=== PATIENT | male | born 1950 | race Caucasian/White ===

== ENCOUNTER 2018-11-20 00:01 | Emergency (ER) | payer MEDICARE ==
[2018-11-20 01:15] LABS: #Eosinphils 0.1 thou/uL (0.0-0.7); #Lymphocytes 1.2 thou/uL (1.20-3.40); #Monocytes 1.3 thou/uL (0.11-0.59); #Neutrophils 8.1 thou/uL (1.40-6.50); %Basophils 0.4 % (0.0-1.0); %Eosinophils 1.2 % (0.0-10.0); %Monocytes 12.4 % (0.0-10.0); Hemoglobin 14.4 g/dL (14.0-18.0); Mean Corpuscular HGB CONC 33.8 g/dL (32.0-36.0); Mean Corpuscular Hemoglobin 31.8 pg (27.0-31.0); Mean Corpuscular Volume 94.1 fL (78.0-98.0); Mean Platelet Volume 7.4 fL (7.4-10.4); Platelet Count 273 thou/uL (130-400); Red Blood Cell (RBC) Count 4.53 mill/uL (4.70-6.10); White Blood Cell (WBC) Count 10.7 thou/uL (4.8-10.8)
[2018-11-20 01:36] LABS: ALT (SGPT) 15 U/L (8-55); AST (SGOT) 17 U/L (5-34); Albumin 3.3 g/dL (3.4-4.8); Alkaline Phosphatase 87 U/L (40-150); Anion Gap 13 mmol/L (10-20); BUN (Urea Nitrogen) 10 mg/dL (8.4-25.7); Bilirubin, Total 0.5 mg/dL (0.2-1.2); Calc. Creatinine Clearance 0 mL/min (70-130); Calcium 9.3 mg/dL (7.8-10.44); Carbon Dioxide 24 mmol/L (23-31); Chloride 93 mmol/L (98-107); Estimated GFR-MDRD 88; Globulin 3.2 g/dL (2.4-3.5); Glucose 122 mg/dL (80-115); Potassium 3.9 mmol/L (3.5-5.1); Protein, Total 6.5 g/dL (5.8-8.1); Sodium 126 mmol/L (136-145)
[2018-11-20] MEDS ORDERED: Piperacillin/Tazobactam 3.375 GM VIAL ONE (01:39)
--- NOTE | 2018-11-20 07:51 | RAD ---
XR Hand Lt 3 View STANDARD History: Trauma Comparison: None. Findings: The exam is overexposed with absent appearance of the soft tissues over the distal phalanx tuft. Soft tissue swelling of the thenar eminence. There are multiple radiopaque foreign objects, punctate, within the thenar soft tissues. Moderate degenerative disease of the second and third metacarpal phalangeal joints. Moderate degenera tive disease with the thumb carpometacarpal joint. Diffuse soft tissue swelling of the hand. Impression: Diffuse soft tissue swelling of the hand with punctate radiopacities along the thenar sof t tissues. Underlying infection is of concern.
== END 2018-11-20 04:10 | disposition home or self-care (01) ==
LOC: ERS 00:01
DX: L03.116 Cellulitis of left lower limb (principal); E11.9 Type 2 diabetes mellitus without complications; I10 Essential (primary) hypertension; J44.9 Chronic obstructive pulmonary disease, unspecified; F17.210 Nicotine dependence, cigarettes, uncomplicated; Z79.899 Other long term (current) drug therapy
CPT/HCPCS: 36415; 80053; 83930; 85025; 96365; 96367; J2543; J3370

== ENCOUNTER 2018-11-21 15:09 | Inpatient (IN) | payer MEDICARE ==
[2018-11-21 16:01] LABS: #Basophils 0.1 thou/uL (0.0-0.2); #Eosinphils 0.3 thou/uL (0.0-0.7); #Lymphocytes 1.1 thou/uL (1.20-3.40); #Monocytes 1.2 thou/uL (0.11-0.59); %Basophils 1.2 % (0.0-1.0); %Eosinophils 3.4 % (0.0-10.0); %Lymphocytes 12.8 % (21.0-51.0); %Monocytes 13.5 % (0.0-10.0); %Neutrophils 69.1 % (42.0-75.0); Hemoglobin 15.5 g/dL (14.0-18.0); Mean Corpuscular HGB CONC 33.8 g/dL (32.0-36.0); Mean Corpuscular Hemoglobin 31.7 pg (27.0-31.0); Mean Corpuscular Volume 93.7 fL (78.0-98.0); Mean Platelet Volume 7.1 fL (7.4-10.4); Platelet Count 363 thou/uL (130-400); RBC Distribution Width 13.8 % (11.5-14.5); Red Blood Cell (RBC) Count 4.91 mill/uL (4.70-6.10); White Blood Cell (WBC) Count 8.7 thou/uL (4.8-10.8)
[2018-11-21 16:27] LABS: ALT (SGPT) 16 U/L (8-55); AST (SGOT) 18 U/L (5-34); Albumin 3.6 g/dL (3.4-4.8); Alkaline Phosphatase 89 U/L (40-150); Anion Gap 14 mmol/L (10-20); BUN (Urea Nitrogen) 8 mg/dL (8.4-25.7); Bilirubin, Total 0.5 mg/dL (0.2-1.2); Calc. Creatinine Clearance 0 mL/min (70-130); Calcium 9.5 mg/dL (7.8-10.44); Carbon Dioxide 23 mmol/L (23-31); Chloride 99 mmol/L (98-107); Estimated GFR-MDRD 85; Globulin 3.4 g/dL (2.4-3.5); Glucose 88 mg/dL (80-115); Potassium 3.6 mmol/L (3.5-5.1); Sodium 132 mmol/L (136-145)
[2018-11-21] MEDS ORDERED: Piperacillin/Tazobactam 3.375 GM VIAL ONE (17:31)
[2018-11-21] MEDS ORDERED: Acetaminophen 325 MG TAB PO PRN (18:29)
[2018-11-21] MEDS ORDERED: Senokot S 8.6-50 MG TAB PO PRN (18:29)
[2018-11-21 21:28] VITALS: BMI 21.7
[2018-11-21] MEDS: Famotidine 20 MG TAB PO SCH (21:40)
[2018-11-21] MEDS: Sodium Chloride 0.9% 1,000 ML IV SCH (21:59)
[2018-11-21] MEDS ORDERED: HumaLOG 300 UNITS/3 ML VIAL SC PRN (22:03)
[2018-11-21] MEDS ORDERED: Dextrose 50% Abboject 50 ML SYRINGE SLOW IVP PRN (22:03)
[2018-11-21] MEDS ORDERED: Dextrose 5% in Water 1,000 ML IV PRN (22:03)
[2018-11-21] MEDS: Piperacillin/Tazobactam 3.375 GM in Sodium Chloride 0.9% 100 ML IVPB SCH (23:44)
[2018-11-21] MEDS: HYDROcodone/Acetaminophen 5/325 mg Tablet PO PRN (23:46)
[2018-11-22] MEDS: Vancomycin HCl 1 GM in Premix Bag 1 BAG IVPB SCH ×2 (02:07→14:38)
--- NOTE | 2018-11-22 03:34 | HP ---
PRIMARY CARE PHYSICIAN: None. CHIEF COMPLAINT: Cellulitis, swelling, and redness to left hand. HISTORY OF PRESENT ILLNESS: Mr. Campbell is a 68-year-old man who reported to the emergency room today. The patient was seen in the emergency room on 11/19, 11/20, and then again today for the similar complaints, and on 11/19 and 11/20 visits, he left AMA. The patient reports that he was bitten by his own cat to middle finger left hand 6 days ago. He has a puncture wound to the left 3rd finger. Reports that it is swollen and painful. He has gotten IV antibiotics on the previous 2 visits to the emergency room and left AMA. Per reports that it is getting better after those visits, but it continues to throb and he sought care in the emergency room again today. At this point, ER physician recommended admission, which he agreed to. The patient denied any fever or chills. Denies any swelling. He was given vanc and Zosyn in the emergency room. PERTINENT LABORATORY DATA: White blood cell count is 8.7, hemoglobin is 15.5, hematocrit is 46, platelet count is 363. Chemistry; sodium 132, potassium 3.6, chloride 99, carbon dioxide 23, gap is 14, BUN is 8, creatinine is 0.89, estimated GFR is 85, glucose is 88, lactic acid is 2, calcium 9.5. Liver enzymes are unremarkable. The patient had an x-ray of his hand on 11/20, after midnight; impression, diffuse soft tissue swelling of the hand with punctate opacities along the thenar soft tissues, underlying infection is of concern. The patient was seen in [place] and given a prescription for Augmentin for this bite. Reports that he did get it filled and has taken 2 doses. The patient admitted to the medical unit for IV antibiotics and further management. REVIEW OF SYSTEMS: Reports left hand swelling, punctate wound to the left 3rd digit, has full range of motion. Does have some swelling and erythema of the left hand and left forearm. Denies fever and chills. All other systems are reviewed and are negative unless mentioned in the HPI. PAST MEDICAL HISTORY: Pertinent for type 2 diabetes, hypertension, pulmonary disease. He has COPD. PAST SURGICAL HISTORY: Includes bilateral ulnar nerve surgery, colonoscopy, and vasectomy. SOCIAL HISTORY: The patient drinks alcohol daily. Reports that he drinks at least 4 to 5 beers a day. He is a smoker. Reports that he smokes 1 pack per day. Also currently uses drug, abuses marijuana. KNOWN ALLERGIES: 1. Demerol. 2. Flu and pneumonia vaccine. 3. Lisinopril. 4. Tramadol. CURRENT MEDICATIONS: 1. ProAir 2 puffs q.6 hours as needed. 2. Symbicort 160/4.5 one puff b.i.d. 3. Spiriva 18 mcg p.r.n. as needed for shortness of breath or wheezing. PHYSICAL EXAMINATION: VITAL SIGNS: Blood pressure 159/93, pulse is 82, respirations 16, temp is 98.5, pO2 sats are 95% on room air. CONSTITUTIONAL: The patient appears nontoxic. He is alert and oriented to person, place, and time. HEENT: Head is atraumatic and normocephalic. Eyes, pupils are equally round and reactive to light. Extraocular muscles are intact. ENT; mouth exam is normal. Mucous membranes are moist. NECK: Trachea is midline. RESPIRATORY/CHEST: Breath sounds are clear. Chest movement is symmetrical. CARDIOVASCULAR: S1 and S2. Heart sounds are normal. ABDOMEN: Nontender. Bowel sounds are heard. BACK: Normal range of motion. No tenderness. EXTREMITIES: Upper extremities; prominent soft tissue swelling of the dorsal aspect of the left hand with no purulence, no abscess. Dorsal aspect of the middle phalanx of the left 3rd digit has a bite puncture wound. No fusiform swelling and no tenderness of the flexor tendon. No lymphadenopathy of the left axilla. Range of motion is normal. Motor strength is normal. Sensation is intact. Radial pulses are equal bilaterally. There is no clubbing. Lower extremities; normal range of motion. Normal strength. Sensation is intact. Pedal pulses are equal. NEUROLOGIC: The patient is oriented to person, place, and time. Speech is normal. Memory is normal. There is no focal motor or sensory deficits. SKIN: Warm, dry, normal in color with the exception of the left hand as documented above. PSYCH: He is alert and oriented to person, place, and time. Speech is rushed. LABORATORY DATA: Sodium 132, potassium 3.6, chloride 99, gap is 14, BUN is 8, creatinine is 0.89. Lactic acid is 2, calcium is 9.5. Liver enzymes are unremarkable. White blood cell count is 8.7, hemoglobin 15.5, hematocrit is 46, platelet count is 363. ASSESSMENT AND PLAN: 1. Cellulitis with puncture wound to left middle finger. We will continue the Zosyn, vanc, antibiotics, gentle hydration, medications added for pain. We have asked Wound Care to consult. We have asked Orthopedics to consult. Hand Surgery is not on-call. 2. History of chronic obstructive pulmonary disease. We will restart home medications. Appears stable. 3. Diabetes type 2. Accu-Cheks a.c. and at bedtime, and sliding scale has been started. 4. History of hypertension, although the patient is not on any home medications. We will trend. 5. Gastrointestinal and deep venous thrombosis prophylaxis have been started. 6. History of alcohol abuse. We have initiated the MOIZ protocol. 7. The patient is a cigarette smoker. Cessation counseling has been given. 8. Hospital course is dependent on clinical findings. Job ID: [id number]
[2018-11-22 05:26] LABS: #Basophils 0.1 thou/uL (0.0-0.2); #Eosinphils 0.5 thou/uL (0.0-0.7); #Lymphocytes 1.1 thou/uL (1.20-3.40); #Neutrophils 4.4 thou/uL (1.40-6.50); %Eosinophils 7.5 % (0.0-10.0); %Lymphocytes 15.4 % (21.0-51.0); %Monocytes 13.9 % (0.0-10.0); %Neutrophils 62.3 % (42.0-75.0); Hemoglobin 14.8 g/dL (14.0-18.0); Mean Corpuscular HGB CONC 33.4 g/dL (32.0-36.0); Mean Corpuscular Hemoglobin 31.3 pg (27.0-31.0); Mean Corpuscular Volume 93.7 fL (78.0-98.0); Mean Platelet Volume 7.3 fL (7.4-10.4); Platelet Count 353 thou/uL (130-400); RBC Distribution Width 13.8 % (11.5-14.5); Red Blood Cell (RBC) Count 4.71 mill/uL (4.70-6.10)
[2018-11-22 05:38] LABS: ALT (SGPT) 14 U/L (8-55); AST (SGOT) 13 U/L (5-34); Albumin 3.1 g/dL (3.4-4.8); Alkaline Phosphatase 76 U/L (40-150); Anion Gap 13 mmol/L (10-20); BUN (Urea Nitrogen) 5 mg/dL (8.4-25.7); Bilirubin, Total 0.6 mg/dL (0.2-1.2); Calc. Creatinine Clearance 91 mL/min (70-130); Calcium 8.6 mg/dL (7.8-10.44); Carbon Dioxide 23 mmol/L (23-31); Chloride 101 mmol/L (98-107); Estimated GFR-MDRD Greater than 90; Globulin 2.8 g/dL (2.4-3.5); Glucose 125 mg/dL (80-115); Potassium 3.2 mmol/L (3.5-5.1); Protein, Total 5.9 g/dL (5.8-8.1); Sodium 134 mmol/L (136-145)
[2018-11-22] MEDS: Piperacillin/Tazobactam 3.375 GM in Sodium Chloride 0.9% 100 ML IVPB SCH ×4 (05:44→23:45)
[2018-11-22] MEDS: HYDROcodone/Acetaminophen 5/325 mg Tablet PO PRN ×3 (05:45→21:03)
[2018-11-22] MEDS ORDERED: Ondansetron ODT 4 MG TAB PO PRN (06:48)
[2018-11-22] MEDS ORDERED: Loratadine 10 MG TAB PO PRN (06:48)
[2018-11-22] MEDS ORDERED: Sodium Chloride 0.65% Nasal 44 ML BOT EA NARE PRN (06:48)
[2018-11-22] MEDS ORDERED: hydrALAZINE 20 MG/ML VIAL SLOW IVP PRN (06:48)
[2018-11-22] MEDS ORDERED: Temazepam 15 MG CAP PO PRN (06:48)
[2018-11-22] MEDS ORDERED: Bisacodyl 10 MG SUPP PR PRN (06:48)
[2018-11-22] MEDS ORDERED: Artificial Tears 18 DROP/0.9 ML EA EYE PRN (06:48)
[2018-11-22] MEDS ORDERED: Calcium Carbonate 500 MG ChewTAB PO PRN (06:48)
[2018-11-22] MEDS ORDERED: Cepastat Lozenges 1 LOZ PO PRN (06:48)
[2018-11-22] MEDS ORDERED: Diabetic Tussin 200 MG/10 ML UDCUP PO PRN (06:48)
[2018-11-22] MEDS ORDERED: Loperamide HCl 2 MG CAP PO PRN (06:48)
[2018-11-22] MEDS ORDERED: Ondansetron PF 4 MG/2 ML Vial IVP PRN (06:48)
[2018-11-22] MEDS ORDERED: Potassium Chloride 20 MEQ TAB PO SCH (07:00)
[2018-11-22] MEDS: Mometasone/Formoterol 120 PUFF INHALER INH SCH ×2 (07:43→19:47)
[2018-11-22] MEDS: Sodium Chloride 0.9% 1,000 ML IV SCH ×2 (09:01→17:32)
[2018-11-22] MEDS: Famotidine 20 MG TAB PO SCH ×2 (09:02→21:02)
[2018-11-22] MEDS: Enoxaparin Sodium 40 MG/0.4 ML SYRINGE SC SCH (09:03)
--- NOTE | 2018-11-22 10:20 | CON ---
DATE OF CONSULTATION: 11/22/2018 REQUESTING PHYSICIAN: [facility] CONSULTING PHYSICIAN: Johny Polk MD REASON FOR CONSULTATION: Cat bite, left hand, with cellulitis. HISTORY OF PRESENT ILLNESS: This is a 68-year-old gentleman, who initially reported to the emergency department on 11/19, again on 11/20 and then again on 11/21 for similar complaints. In the first several visits, he left AMA. He states that he was bitten by his own cat on the left hand middle finger 1 week ago today. He [place]. He was transporting the cat, and the cat became upset. He states that the cat is up-to-date on all vaccinations. This is a house cat, that is his cat and he has never had problems with. He is right-hand dominant. He states that he was unable to seek medical care immediately secondary to his move. He states his condition worsened with pain and swelling to the left hand. He denies any fever, chills, or any other symptoms. He has been admitted to the Medicine Service. He is on vancomycin and Zosyn. We have been consulted for further evaluation of this injury. He currently denies any numbness or tingling and he is also right-hand dominant. PAST MEDICAL HISTORY: Significant for type 2 diabetes, hypertension, COPD. PAST SURGICAL HISTORY: Includes colonoscopy, vasectomy, bilateral ulnar nerve surgery. SOCIAL HISTORY: The patient drinks alcohol daily. He also is a smoker. He reports that he smokes a half a pack to 1 pack per day. Also, states that he uses recreational marijuana. The patient states that he lives alone and recently moved to this area. He is an independent ambulator. FAMILY HISTORY: Reviewed and noncontributory. ALLERGIES: INCLUDE DEMEROL, FLU AND PNEUMONIA VACCINE, LISINOPRIL, TRAMADOL. PHYSICAL EXAMINATION: VITAL SIGNS: Show temperature of 97.8, pulse of 80, respiratory rate of 22, O2 saturation of 95% on room air, and blood pressure of 165/77. GENERAL: The patient is awake and alert. He is cooperative with exam findings. He is in no apparent distress. There is no family present in the room with him today. HEENT: Head is normocephalic and atraumatic. NECK: Supple. Trachea midline. Breathing nonlabored. EXTREMITIES: The left upper extremity is evaluated. There is a healing puncture wound noted to the third digit right along the dorsal aspect of the PIP joint. The patient does slightly flex and extend all digits on his own. He reports some pain in digits three, four and five, although he is able to flex and extend his digits on his own. I am also able to passively flex and extend these digits as well. Capillary refill is 3 seconds. There is no erythema or streaking noted at the palmar aspect of the hand or the digits. No tenderness upon the flexor tendons. No palpable fluid collection. Remainder of extremity exam is otherwise unremarkable. LABORATORY DATA: Reviewed including CBC shows a CBC from today 11/22/2018 with a normal blood cell count of 7.0, hemoglobin of 14.8, hematocrit of 44.2, and platelet count of 353. ASSESSMENT: Left hand cellulitis status post cat bite 1 week ago. PLAN: At this time, the patient's condition does not appear operative. There is no palpable fluid collection. There is no evidence of flexor tenosynovitis. The patient will continue on IV antibiotics at this time. He reports a concern over his animals living at home. We have strongly recommended that he stay inpatient in order to receive the best care possible and receive IV antibiotics. He does state that he has some pill antibiotics at home that he was prescribed and he picked up, but he never started taking. These include Augmentin and another unknown medication. We will continue to follow the patient. No surgical intervention is anticipated at this time. Job ID: [id number]
--- NOTE | 2018-11-22 11:33 | PDOC.PN ---
- Subjective Encounter Start Date: 11/22/18 Encounter Start Time: 09:00 -: old records requested/rev Patient seen and examined. No new complaints. No overnight events - Objective Resuscitation Status - Order Detail: 11/22/18 06:49 Resuscitation Status Routine Resuscitation Status: FULL: Full Resuscitation MAR Reviewed: Yes Vital Signs & Weight: Vital Signs (12 hours) Temp Pulse Resp BP Pulse Ox 11/22/18 08:00 97.8 F 80 22 H 165/77 H 95 11/22/18 07:43 76 16 96 11/22/18 06:00 98.6 F 78 18 138/72 95 11/22/18 00:35 98.5 F 80 18 140/74 96 Weight Weight 151 lb 2 oz Result Diagrams: 11/22/18 04:34 11/22/18 04:34 Additional Labs: Accuchecks 11/22/18 11/21/18 05:49 22:00 POC Glucose 139 H 178 H Phys Exam - Physical Examination Constitutional: NAD HEENT: PERRLA, moist MMs, sclera anicteric Neck: no JVD, supple Respiratory: no wheezing, no rales, no rhonchi, clear to auscultation bilateral Cardiovascular: RRR, no significant murmur, no rub Gastrointestinal: soft, non-tender, no distention, positive bowel sounds Musculoskeletal: no edema, pulses present left hand cellulitis, finger swelling noted Neurological: non-focal, normal sensation, moves all 4 limbs Lymphatic: no nodes Psychiatric: normal affect, A&O x 3 Skin: no rash, normal turgor Dx/Plan (1) Cellulitis of left hand Code(s): L03.114 - CELLULITIS OF LEFT UPPER LIMB Status: Acute (2) Hypokalemia Code(s): E87.6 - HYPOKALEMIA Status: Acute (3) Alcohol abuse Code(s): F10.10 - ALCOHOL ABUSE, UNCOMPLICATED Status: Chronic (4) COPD (chronic obstructive pulmonary disease) Status: Chronic (5) Dyslipidemia Code(s): E78.5 - HYPERLIPIDEMIA, UNSPECIFIED Status: Chronic (6) Hypertension Code(s): I10 - ESSENTIAL (PRIMARY) HYPERTENSION Status: Chronic - Plan cont current plan of care, continue antibiotics * medication reviewed as below * symptomatic treatment * continue vancomycin and zosyn * pain controlled * ortho consulted, no plan for surgery . Review of Systems - Review of Systems ENT: negative: Ear Pain, Ear Discharge, Nose Pain, Nose Discharge, Nose Congestion, Mouth Pain, Mouth Swelling, Throat Pain, Throat Swelling, Other Respiratory: negative: Cough, Dry, Shortness of Breath, Hemoptysis, SOB with Excertion, Pleuritic Pain, Sputum, Wheezing Cardiovascular: negative: chest pain, palpitations, orthopnea, paroxysmal nocturnal dyspnea, edema, light headedness, other Gastrointestinal: negative: Nausea, Vomiting, Abdominal Pain, Diarrhea, Constipation, Melena, Hematochezia, Other Genitourinary: negative: Dysuria, Frequency, Incontinence, Hematuria, Retention , Other Musculoskeletal: Hand Pain. negative: Neck Pain, Shoulder Pain, Arm Pain, Back Pain, Leg Pain, Foot Pain, Other - Medications/Allergies Allergies/Adverse Reactions: Allergies Allergy/AdvReac Type Severity Reaction Status Date / Time influenza virus vaccine Allergy Verified 11/21/18 21:26 trivalent lisinopril Allergy Verified 11/21/18 21:26 meperidine [From Demerol] Allergy Verified 11/21/18 21:26 pneumococcal vaccine Allergy Verified 11/21/18 21:26 [From Pneumovax 23] tramadol Allergy Verified 11/21/18 21:26 Medications: Current Medications Acetaminophen (Tylenol) 650 mg PO Q4H PRN PRN Reason: Headache/Fever/Mild Pain (1-3) Hydrocodone Bitart/Acetaminophen ([place] 5/325) 1 tab PO Q4H PRN PRN Reason: Moderate Pain (4-6) Last Admin: 11/22/18 05:45 Dose: 1 tab Artificial Tears (Tears Naturale) 2 drop EA EYE PRN PRN PRN Reason: Dry Eyes Bisacodyl (Dulcolax) 10 mg [place] DAILYPRN PRN PRN Reason: Constipation Calcium Carbonate (Tums) 1,000 mg PO Q4H PRN PRN Reason: Heartburn or Indigestion Dextrose/Water (Dextrose 50%) 25 gm SLOW IVP PRN PRN PRN Reason: Hypoglycemia Enoxaparin Sodium (Lovenox) 40 mg SC 0900 [facility] Last Admin: 11/22/18 09:03 Dose: Not Given Famotidine (Pepcid) 20 mg PO BID [facility] Last Admin: 11/22/18 09:02 Dose: 20 mg Glucagon (Glucagon) 1 mg IM PRN PRN PRN Reason: Hypoglycemia Guaifenesin (Robitussin Sf) 200 mg PO Q4H PRN PRN Reason: Cough Hydralazine HCl (Apresoline) 10 mg SLOW IVP Q4H PRN PRN Reason: SBP > 180 and HR < 70 Sodium Chloride (Normal Saline 0.9%) 1,000 mls @ 75 mls/hr IV .[id number] [facility] Last Admin: 11/22/18 09:01 Dose: Not Given Piperacillin Sod/Tazobactam (Sod 3.375 gm/ Sodium Chloride) 100 mls @ 200 mls/ hr IVPB Q6HR [facility] Last Admin: 11/22/18 05:44 Dose: 100 mls Vancomycin HCl 1 gm/ Device 200 mls @ 200 mls/hr IVPB 0200,1400 [facility] Last Admin: 11/22/18 02:07 Dose: 200 mls Dextrose/Water (D5w) 1,000 mls @ 0 mls/hr IV .Q0M PRN PRN Reason: Hypoglycemia Insulin Human Lispro (Humalog) 0 units SC .MILD SLIDING SCALE PRN PRN Reason: Mild Correctional Scale Loperamide HCl (Imodium) 2 mg PO PRN PRN PRN Reason: Diarrhea/Loose Stools Loratadine (Claritin) 10 mg PO DAILYPRN PRN PRN Reason: Sinus Symptoms Miscellaneous Medication (Pharmacy To Dose) 1 each IVPB PRN PRN PRN Reason: Pharmacy to dose Mometasone Furoate/Formoterol Fumar (Dulera 200 Mcg/5 Mcg Inhaler) 1 puff INH BID-RT [facility] Last Admin: 11/22/18 07:43 Dose: 1 puff Ondansetron HCl (Zofran Odt) 4 mg PO Q6H PRN PRN Reason: Nausea/Vomiting Ondansetron HCl (Zofran) 4 mg IVP Q6H PRN PRN Reason: Nausea/Vomiting Senna/Docusate Sodium (Senokot S) 2 tab PO BIDPRN PRN PRN Reason: Constipation Sodium Chloride ([place] Nasal [place] 0.65%) 0 ml EA NARE QIDPRN PRN PRN Reason: Nasal Congestion Sodium Chloride (Flush - Normal Saline) 10 ml IVF Q12HR [facility] Last Admin: 11/22/18 09:02 Dose: Not Given Sodium Chloride (Flush - Normal Saline) 10 ml IVF PRN PRN PRN Reason: Saline Flush Temazepam (Restoril) 15 mg PO HSPRN PRN PRN Reason: Insomnia Throat Lozenges (Cepastat Lozenges) 1 hemant PO Q2H PRN PRN Reason: Sore Throat
[2018-11-23 01:21] LABS: Vancomycin, Trough 14.2 ug/mL
[2018-11-23] MEDS: Vancomycin HCl 1 GM in Premix Bag 1 BAG IVPB SCH (02:15)
[2018-11-23] MEDS: Piperacillin/Tazobactam 3.375 GM in Sodium Chloride 0.9% 100 ML IVPB SCH (05:57)
[2018-11-23] MEDS: Sodium Chloride 0.9% 1,000 ML IV SCH (05:58)
[2018-11-23] MEDS: Mometasone/Formoterol 120 PUFF INHALER INH SCH (07:38)
[2018-11-23] MEDS: Enoxaparin Sodium 40 MG/0.4 ML SYRINGE SC SCH (08:12)
[2018-11-23] MEDS: Famotidine 20 MG TAB PO SCH (08:12)
[2018-11-23] MEDS ORDERED: Amlodipine 5 MG TAB PO SCH (09:00)
[2018-11-23 09:57] VITALS: BP 176/83; TEMP 97.9
--- NOTE | 2018-11-23 10:26 | PDOC.PN ---
- Subjective Encounter Start Date: 11/23/18 Encounter Start Time: 08:20 Patient seen and examined. No new complaints. No overnight events - Objective Resuscitation Status - Order Detail: 11/22/18 06:49 Resuscitation Status Routine Resuscitation Status: FULL: Full Resuscitation MAR Reviewed: Yes Vital Signs & Weight: Vital Signs (12 hours) Temp Pulse Resp BP BP Pulse Ox 11/23/18 08:12 150/91 H 11/23/18 08:00 97.9 F 68 14 176/83 H 99 11/23/18 07:38 75 16 99 Weight Admit Weight 151 lb 2 oz Weight 151 lb 2 oz I&O: 11/22/18 11/23/18 11/24/18 06:59 06:59 06:59 Intake Total 1475 Balance 1475 Result Diagrams: 11/22/18 04:34 11/22/18 04:34 Additional Labs: Accuchecks 11/23/18 11/22/18 11/22/18 05:58 19:48 16:40 POC Glucose 97 146 H 102 11/22/18 11:43 POC Glucose 144 H Phys Exam - Physical Examination Constitutional: NAD HEENT: PERRLA, moist MMs, sclera anicteric Neck: no JVD, supple Respiratory: no wheezing, no rales, no rhonchi Cardiovascular: RRR, no significant murmur, no rub Gastrointestinal: soft, non-tender, no distention, positive bowel sounds Musculoskeletal: no edema, pulses present Neurological: non-focal, normal sensation Lymphatic: no nodes Psychiatric: normal affect, A&O x 3 Skin: no rash, normal turgor Dx/Plan (1) Cellulitis of left hand Code(s): L03.114 - CELLULITIS OF LEFT UPPER LIMB Status: Acute (2) Hypokalemia Code(s): E87.6 - HYPOKALEMIA Status: Acute (3) Alcohol abuse Code(s): F10.10 - ALCOHOL ABUSE, UNCOMPLICATED Status: Chronic (4) COPD (chronic obstructive pulmonary disease) Status: Chronic (5) Dyslipidemia Code(s): E78.5 - HYPERLIPIDEMIA, UNSPECIFIED Status: Chronic (6) Hypertension Code(s): I10 - ESSENTIAL (PRIMARY) HYPERTENSION Status: Chronic - Plan cont current plan of care, continue antibiotics * medication reviewed as below * symptomatic treatment * see discharge tamara. Review of Systems - Review of Systems ENT: negative: Ear Pain, Ear Discharge, Nose Pain, Nose Discharge, Nose Congestion, Mouth Pain, Mouth Swelling, Throat Pain, Throat Swelling, Other Respiratory: negative: Cough, Dry, Shortness of Breath, Hemoptysis, SOB with Excertion, Pleuritic Pain, Sputum, Wheezing Cardiovascular: negative: chest pain, palpitations, orthopnea, paroxysmal nocturnal dyspnea, edema, light headedness, other Gastrointestinal: negative: Nausea, Vomiting, Abdominal Pain, Diarrhea, Constipation, Melena, Hematochezia, Other Genitourinary: negative: Dysuria, Frequency, Incontinence, Hematuria, Retention , Other Musculoskeletal: negative: Neck Pain, Shoulder Pain, Arm Pain, Back Pain, Hand Pain, Leg Pain, Foot Pain, Other - Medications/Allergies Allergies/Adverse Reactions: Allergies Allergy/AdvReac Type Severity Reaction Status Date / Time influenza virus vaccine Allergy Verified 11/21/18 21:26 trivalent lisinopril Allergy Verified 11/21/18 21:26 meperidine [From Demerol] Allergy Verified 11/21/18 21:26 pneumococcal vaccine Allergy Verified 11/21/18 21:26 [From Pneumovax 23] tramadol Allergy Verified 11/21/18 21:26
[2018-11-23] MEDS ORDERED: PROVENTIL INHALER 6.7 G (200 INHALATIONS) INH SCH (13:00)
--- NOTE | 2018-11-25 07:50 | DIS ---
DATE OF ADMISSION: 11/21/2018 DATE OF DISCHARGE: 11/23/2018 DISCHARGE DISPOSITION: Home. PRIMARY CARE PHYSICIAN: [facility]. PRIMARY DISCHARGE DIAGNOSES: Cat bite and subsequent left hand cellulitis and hypokalemia. SECONDARY DISCHARGE DIAGNOSES: Hypertension, dyslipidemia, chronic obstructive pulmonary disease, and alcohol abuse. PRIMARY PROCEDURE/OPERATION: None. RADIOLOGICAL INVESTIGATION: None. SIGNIFICANT LABORATORY DATA: Hemoglobin 14.8. ESR 39. Creatinine 0.73. CRP 8.60. DISCHARGE MEDICATION: 1. Augmentin 875 mg twice daily. 2. Amlodipine 5 mg p.o. daily. 3. Spiriva 18 mcg inhalation daily. 4. Symbicort one puff inhalation b.i.d. 5. ProAir HFA 2 puffs q.6 hourly p.r.n. CONTRAINDICATION: None. CODE STATUS: Full code. INPATIENT SKATE BOARDER: Dr. Johny Polk was consulted while in hospital. TEST RESULT PENDING ON DISCHARGE: None. ALLERGIES: INFLUENZA VACCINE, LISINOPRIL, AND DEMEROL. DISCHARGE PLAN: Posthospital, the patient will follow up with primary care physician Dr. Polk as instructed. HOSPITAL COURSE: This is a 68-year-old male, who has multiple animals at his home including cats. He had cat scratch and cat bite on his left hand. Subsequently, his left middle and index finger were swollen and erythematous. He was found with cellulitis. He was admitted to the hospital. He was treated with vancomycin and Zosyn. On discharge, we changed to Augmentin. This patient was evaluated by Orthopedic Physician while in hospital and they are not thinking that this patient needs any surgical intervention. This patient will follow up with orthopedic physician as an outpatient basis and we advised him to continue antibiotic therapy as prescribed. The patient is seen and examined at bedside today. He is insisting on going home today, and based on his request, we are discharging him home today. Overall, the patient is medically stable for discharge. Job ID: [id number]
== END 2018-11-23 10:15 | disposition home or self-care (01) | DRG 603 ==
LOC: ERS 15:09 → OBSVTOIN 18:08 → T4-A 18:08
PROVIDERS: ADMIT Internal Medicine; ATTEND Internal Medicine
DX: L03.114 Cellulitis of left upper limb (principal); S61.253A Open bite of left middle finger without damage to nail, initial encounter; W55.01XA Bitten by cat, initial encounter; E11.9 Type 2 diabetes mellitus without complications; I10 Essential (primary) hypertension; J44.9 Chronic obstructive pulmonary disease, unspecified; F17.210 Nicotine dependence, cigarettes, uncomplicated; E87.6 Hypokalemia; F10.10 Alcohol abuse, uncomplicated; Z79.899 Other long term (current) drug therapy; Z88.7 Allergy status to serum and vaccine; Z79.51 Long term (current) use of inhaled steroids; Z88.8 Allergy status to other drugs, medicaments and biological substances
CPT/HCPCS: 36415; 36416; 80053; 80202; 83605; 83930; 85025; 85652; 86140; 96365; 96367; J1650; J2543; J3370; J3490

== ENCOUNTER 2021-09-21 13:10 | Outpatient (CLI) | payer OTHER | END 2021-09-21 13:11 | disposition home or self-care (01) | LOC: TBSIIMAG 13:10 | PROVIDERS: ATTEND Neurological Surgery | DX: M47.22 Other spondylosis with radiculopathy, cervical region (principal); Z98.890 Other specified postprocedural states | CPT/HCPCS: 72040 ==

== ENCOUNTER 2022-12-21 13:08 | Observation (INO) | payer OTHER, MEDICARE ==
[2022-12-21] MEDS ORDERED: Aspirin 81 mg Enteric Coated Tablet PO SCH (15:30)
[2022-12-21] MEDS ORDERED: Ondansetron ODT 4 MG TAB SL PRN (16:45)
[2022-12-21] MEDS ORDERED: Ondansetron PF 4 MG/2 ML Vial IVP PRN (16:45)
[2022-12-21] MEDS ORDERED: Acetaminophen 325 MG TAB PO PRN (16:45)
[2022-12-21] MEDS ORDERED: Albuterol 200 PUFF (6.7GM INHALER) INH PRN (16:57)
[2022-12-21] MEDS ORDERED: Ipratropium Bromide 2.5 ml Neb NEB PRN (17:09)
[2022-12-21 17:22] VITALS: BMI 22.2
[2022-12-21] MEDS: Gabapentin 400 MG CAP PO SCH (20:51)
[2022-12-21] MEDS ORDERED: Atorvastatin Calcium 40 MG TAB PO SCH (21:00)
[2022-12-22 04:40] LABS: Hemoglobin A1c 5.8 % (4.0-6.0)
[2022-12-22] MEDS ORDERED: Atorvastatin Calcium 10 MG TAB PO SCH (09:00)
[2022-12-22] MEDS ORDERED: Amlodipine 5 MG TAB PO SCH (09:00)
[2022-12-22] MEDS ORDERED: Aspirin 81 mg Enteric Coated Tablet PO SCH (09:00)
[2022-12-22] MEDS: Gabapentin 400 MG CAP PO SCH ×2 (09:42→16:07)
[2022-12-22 11:12] VITALS: TEMP 97.7
[2022-12-22 15:31] VITALS: BP 147/93
== END 2022-12-22 17:03 | disposition home or self-care (01) ==
LOC: ERS 13:08 → ERHOLD 15:07 → 2SE 16:56
PROVIDERS: ADMIT Family Medicine; ATTEND Family Medicine
DX: R20.2 Paresthesia of skin (principal); R53.1 Weakness; E78.5 Hyperlipidemia, unspecified; F10.10 Alcohol abuse, uncomplicated; J44.9 Chronic obstructive pulmonary disease, unspecified; E11.40 Type 2 diabetes mellitus with diabetic neuropathy, unspecified; K21.9 Gastro-esophageal reflux disease without esophagitis; I10 Essential (primary) hypertension; Z79.82 Long term (current) use of aspirin; Z79.899 Other long term (current) drug therapy; Z86.73 Personal history of transient ischemic attack (TIA), and cerebral infarction without residual deficits; Z88.6 Allergy status to analgesic agent; Z88.7 Allergy status to serum and vaccine; Z88.8 Allergy status to other drugs, medicaments and biological substances
CPT/HCPCS: 36416; 70551; 80061; 83036; 93880; 94640; 99285; G0378